=== PATIENT | female | born 1990 | race Caucasian/White ===

== ENCOUNTER 2017-01-22 04:05 | Inpatient (IN) | payer BC, OTHER ==
[~2017-01-22] VITALS: Ht 157.5 cm; Wt 88.9 kg
[2017-01-22] VITALS (51 sets, daily range): BP systolic 99–163; BP diastolic 50–137; PULSE 69–128; RESP 16–22; TEMP 97.8–98.9; O2SAT 99
[~2017-01-22 04:05] MED LIST: OXYC-360 PO; PREN0.01 PO
--- NOTE | 2017-01-22 05:02 | PD ---
HPI Travel History International Travel<30 Days: No Contact w/Intl Traveler<30Days: No Known Affected Area: No History of Present Illness HPI This patient is a 26-year-old 2 para 1001 EDC is January 22, 2017 presently at 40 weeks 2 days she presents the chief complaint of onset of contractions at 2:15 this morning no ruptured membranes no vaginal bleeding the baby is active care withHOGA course is unremarkable her group B strep is negative History Past Medical History Narrative Medical No known drug allergies no major medical problems Obstetric History Obstetric History First baby born April 2010 male weight 6 lbs. 10 oz. for nonreassuring heartbeat Desires a with this Past Surgical History Narrative Surgical 1 Family History Narrative Family History Heart disease hypertension gout Social History Alcohol Use: No Tobacco Use: No Substance Abuse: No (smoked years ago.) Allergies-Medications (Allergen,Severity, Reaction): Coded Allergies: No Known Allergies (Verified , 04/09/10) Home Meds Reported Medications Oxycodone/Acetaminophen (Percocet)5 Mg/325 Mg Tab1-2 Tab PO Q4-6HPRN #30 FOR PAIN 04/12/10 Multivit/Min/Fol Ac/Iron/Pren ( Vit ( Plus)) Tab1 Tab PO DAILY #30 04/08/10 Review of Systems Gastrointestinal: Abdominal Pain (irregular contractions) Physical Exam Narrative GENERAL: Well-nourished, well-developed patient. Alert oriented 3 and cooperative in moderate distress secondary to uterine contractions . CARDIOVASCULAR: Regular rate and rhythm without murmurs, gallops, or rubs. RESPIRATORY: Breath sounds equal bilaterally. No accessory muscle use ABDOMEN/GI: Gravid term estimated weight of 6-1/2-7 pounds Gravid to [-] weeks size term Fundal Height: [-] GENITOURINARY: External Genitalia: intact and normal in appearance BUS glands: [-] Cervix: [-] Posterior soft Dilatation: [-] 1 cm Effacement: [-] 80% effaced Station: [-] -2 station Presentation: [-] Vertex Membranes: [intact Uterine Contractions: [-] Irregular FHT's: Category: [-] 1 Baseline: [-]140 Reactive: [-] + Variability: [-] Moderate Decels: [-]0 EXTREMITIES: No cyanosis or edema. 2+ reflexes NEUROLOGICAL: Awake and alert. Motor and sensory grossly within normal limits. Five out of 5 muscle strength in all muscle groups. Normal speech. Data Data Vital Signs Reviewed: Yes (initial blood pressure 148/101 repeat pending) [facility] Medical Record Reviewed: Yes Interpretation(s) 26-year-old at 40 weeks Early latent phase Previous 1 Desires Group B strep negative Initial blood pressure mildly elevated Narrative Course / MDM Patient has been monitored No cervical change still 80% effaced 17 m dilated -2 station Category [address] Rebolledo in route to the hospital to evaluate Plan External monitoring Observation Repeat blood pressure Reevaluation Diagnosis Diagnosis: Primary Impression: Irregular contractions Additional Impression: Previous section Giselle Lombardi MD Jan 22, 2017 05:02
[2017-01-22] MEDS ORDERED: CITRIC ACID-SODIUM CITRATE LIQ 30 ML UDC PO SCH (08:00)
[2017-01-22] MEDS ORDERED: ONDANSETRON HCL 4 MG/2 ML VIAL IV PRN (08:00)
[2017-01-22] MEDS ORDERED: LIDOCAINE HCL 1% 50 ML VIAL I-DERMAL PRN (08:00)
[2017-01-22] MEDS ORDERED: SODIUM CHLORID 0.9% 500 ML INJ 500 ML IV PRN (08:00)
[2017-01-22] MEDS ORDERED: LIDOCAINE HCL 1% 50 ML VIAL INFIL PRN (08:00)
[2017-01-22] MEDS ORDERED: MINERAL OIL 10 ML VIAL TOPICAL PRN (08:00)
[2017-01-22] MEDS ORDERED: OXYTOCIN 30 UNITS-500ML PREMIX 500 ML IV ONE (08:00)
[2017-01-22] MEDS ORDERED: LACTATED RINGER'S 1000 ML INJ 1,000 ML IV PRN (08:00)
--- NOTE | 2017-01-22 08:03 | PD.LABORPN ---
Subjective Subjective feeling painful contractions q4 min consistently now, pain 6-7/10, denies SROM or VB, +FM Objective Vital Signs Vital Signs Date Time Temp Pulse Resp B/P Pulse Ox O2 Delivery O2 Flow Rate FiO2 01/22/17 07:31 86 128/85 01/22/17 07:15 90 146/86 Objective Pelvic Exam: Cervix: [mid] Dilatation: [2] Effacement: [80] Station: [-3] Presentation: [vtx] Membranes: [intact] Uterine Contractions: [q3-5 min] FHT's: Category: [I] Baseline: [130s] Reactive: [y] Variability: [y] Decels: [n] Assessment/Plan Problem List: (1) Labor and delivery indication for care or intervention (2) Post term over 40 weeks (3) History of delivery, currently Assessment and Plan 26 yo with IUP at 40w2d presents to L&D ED for c/o painful contractions , labor pains 1) contractions/labor: pt ruthie regularly q3-5 min, slight cervical change from 1-2 cm and very effaced; d/w pt expectant management due to h/o CD, pt agrees, aware of risk of , consents to admission & risks 2) TOLAC: r/b/a d/w pt including risks of uterine rupture & compromise, AQA, pt desires TOLAC 3) GBS neg 4) status: vtx, Cat I tracing May eRbolledo MD Jan 22, 2017 08:03
[2017-01-22] MEDS ORDERED: SODIUM CHLOR 0.9% 1000 ML INJ 1,000 ML IV PRN (08:16)
[2017-01-22] MEDS: LACTATED RINGER'S 1000 ML INJ 1,000 ML IV SCH ×2 (08:34→09:33)
[2017-01-22 08:45] LABS: AUTOMATED NEUTROPHIL # 11.7 TH/MM3 (1.8-7.7); BASOPHIL % 0.3 % (0.0-2.0); EOSINOPHIL # 0.1 TH/MM3 (0-0.4); HEMO FLAGS DIFF FINAL; LYMPH % 10.2 % (9.0-44.0); LYMPHOCYTE # 1.4 TH/MM3 (1.0-4.8); MEAN CELL VOLUME 86.1 FL (80.0-100.0); MEAN CORPUSCULAR HEMOGLOBIN 27.2 PG (27.0-34.0); MEAN CORPUSCULAR HGB CONC 31.6 % (32.0-36.0); MONO % 5.3 % (0.0-8.0); NEUT % 83.2 % (16.0-70.0); PLATELET COUNT 283 TH/MM3 (150-450); RED BLOOD COUNT 4.06 MIL/MM3 (4.00-5.30); RED CELL DISTRIBUTION WIDTH 16.2 % (11.6-17.2); WHITE BLOOD COUNT 14.1 TH/MM3 (4.0-11.0)
--- NOTE | 2017-01-22 09:57 | PD.LABORPN ---
Subjective Subjective feeling better now s/p epidural Objective Vital Signs Vital Signs Date Time Temp Pulse Resp B/P Pulse Ox O2 Delivery O2 Flow Rate FiO2 01/22/17 08:39 16 01/22/17 08:39 97.8 01/22/17 08:36 85 139/86 01/22/17 07:46 83 158/92 01/22/17 07:31 86 128/85 01/22/17 07:15 90 146/86 Objective Pelvic Exam: Cervix: [mid] Dilatation: [3-4] Effacement: [80] Station: [-2] Presentation: [vtx] Membranes: [AROM'd this check clear fluid, IUPC placed] Uterine Contractions: [q 7 min] FHT's: Category: [I] Baseline: [130s] Reactive: [y] Variability: [y] Decels: [earlys with contractions] Assessment/Plan Problem List: (1) Labor and delivery indication for care or intervention (2) Post term over 40 weeks (3) History of delivery, currently Assessment and Plan changing well on own IUPC placed to better monitor contraction strength in setting of TOLAC expectant management for now, pitocin if indicated, low dose only May Rebolledo MD Jan 22, 2017 09:57
[2017-01-22] MEDS ORDERED: OXYTOCIN 30 UNITS-500ML PREMIX 500 ML IV SCH (10:00)
[2017-01-22] MEDS ORDERED: ePHEDrine/NS 25 MG/5 ML SYR ONE (12:12)
[2017-01-22] MEDS ORDERED: fentaNYL 2MCG-BUPIV 0.125% INJ 100 ML ONE (12:12)
[2017-01-22] MEDS ORDERED: ePHEDrine/NS 25 MG/5 ML SYR IV PRN (13:45)
[2017-01-22] MEDS ORDERED: fentaNYL 2MCG-BUPIV 0.125% 100 ML EPIDURAL SCH (13:45)
[2017-01-22] MEDS ORDERED: DO NOT ADMINISTER ANTICOAGULANTS XX PRN (13:45)
[2017-01-22] MEDS ORDERED: NO SYSTEM NARCOTICS XX PRN (13:45)
--- NOTE | 2017-01-22 15:51 | PD.OB.DELI ---
Delivery Date: Jan 22, 2017 Anesthesia: Epidural Episiotomy: None Vaginal Delivery: Spontaneous, Presentation: Occiput anterior Nuchal Cord: None Delayed cord clamping (45 sec): Yes : Male One Minute : 7 Five Minute : 9 Weight: 8#14oz Care: Spontaneous crying, Responded to stimulation Placenta: Spontaneous delivery, Intact, 3 vessel cord Laceration: Perineal laceration, 2 deg Repair: Chromic running Additional Information EBL 200 mL successful May Rebolledo MD Jan 22, 2017 15:51
[2017-01-22] MEDS ORDERED: ALUMINUM/MAGNESIUM/SIMETH 30 ML CUP PO PRN (16:00)
[2017-01-22] MEDS ORDERED: SODIUM CHLORIDE 0.9% FLUSH 5 ML FLUSH IV PRN (16:00)
[2017-01-22] MEDS ORDERED: ZOLPIDEM TARTRATE 5 MG TAB PO PRN (17:00)
[2017-01-22] MEDS ORDERED: BENZOCAINE 20% TOPICAL SPRAY 60 ML CAN TOPICAL PRN (17:00)
[2017-01-22] MEDS ORDERED: ONDANSETRON ODT 4 MG TAB PO PRN (17:00)
[2017-01-22] MEDS ORDERED: ACETAMINOPHEN 325 MG TAB PO PRN (17:00)
[2017-01-22] MEDS ORDERED: MEASLES, MUMPS, RUBELLA VACCINE 0.5 ML VIAL SQ ONE (17:00)
[2017-01-22] MEDS ORDERED: WITCH HAZEL 50%/GLYCERIN 12.5% 40 PAD JAR TOPICAL PRN (17:00)
[2017-01-22] MEDS ORDERED: oxyCODONE/ACETAMINOPHEN 5 MG/325 MG TAB PO PRN (17:00)
[2017-01-22] MEDS ORDERED: DIPHTH/TETANUS/ACEL PERTUSSIS (BOOSTER) 0.5 ML VIAL/PFS IM ONE (17:00)
[2017-01-22] MEDS: IBUPROFEN 600 MG TAB PO PRN (18:23)
[2017-01-22] MEDS ORDERED: SODIUM CHLORIDE 0.9% FLUSH 5 ML FLUSH IV SCH (21:00)
[2017-01-23] MEDS: IBUPROFEN 600 MG TAB PO PRN ×4 (00:33→21:23)
--- NOTE | 2017-01-23 08:56 | HHI.DCPOC ---
Discharge Care Plan Diagnosis: (1) , delivered, current hospitalization Your Health Problems Are: Vaginal delivery Report Symptoms to Your Doctor -Temperate above 100.5 degrees -Redness, of incision or excessive or foul smelling drainage -Unusual pain or calf pain -Increased vaginal bleeding -Painful or difficulty urinating -Feelings of extreme sadness or anxiety after 2 weeks Goals to Promote Your Health * To prevent worsening of your condition and complications * To maintain your health at the optimal level Directions to Meet Your Goals Take your medications as prescribed Follow your dietary instruction Follow activity as directed Ensure plenty of rest for recovery Drink fluids for hydration Keep your appointments as scheduled Take your immunizations and boosters as scheduled If your symptoms worsen call your PCP, if no PCP go to Urgent Care Center or Emergency Room Smoking is Dangerous to Your Health. Avoid second hand smoke Call the 24-hour crisis hotline for domestic abuse at May Rebolledo MD Jan 23, 2017 08:56
[2017-01-23 09:30] VITALS: BP 135/80; PULSE 94; RESP 20; TEMP 97.8
[2017-01-23] MEDS: oxyCODONE/ACETAMINOPHEN 5 MG/325 MG TAB PO PRN ×3 (09:58→21:23)
--- NOTE | 2017-01-23 12:17 | HHI.OB ---
Subjective Post Day: 1 Remarks s/p successful after spontaneous labor doing well, no complaints, light lochia, pain minimal 1/10 cramps Objective Vitals/I&O Vital Signs Date Time Temp Pulse Resp B/P Pulse Ox O2 Delivery O2 Flow Rate FiO2 01/23/17 09:30 97.8 94 20 135/80 01/22/17 22:00 119/71 01/22/17 22:00 98.2 115 22 01/22/17 18:41 99 01/22/17 18:00 125 01/22/17 18:00 18 144/87 01/22/17 18:00 98.9 01/22/17 17:00 126 127/63 01/22/17 16:45 118 130/58 01/22/17 16:40 98.9 18 01/22/17 16:31 122 128/66 01/22/17 16:15 126 136/63 01/22/17 16:00 123 131/56 01/22/17 15:47 124 99/70 01/22/17 15:30 119/83 01/22/17 15:00 122 124/70 01/22/17 15:00 128 01/22/17 14:55 116 01/22/17 14:50 105 01/22/17 14:45 111 01/22/17 14:40 108 01/22/17 14:35 98 01/22/17 14:33 101 116/54 01/22/17 14:33 98.6 18 01/22/17 14:31 69 163/137 01/22/17 14:30 106 01/22/17 14:25 95 01/22/17 14:20 107 01/22/17 14:15 107 01/22/17 14:14 111 151/67 01/22/17 14:10 101 01/22/17 14:00 91 107/67 01/22/17 13:30 84 106/84 01/22/17 12:57 114 01/22/17 12:57 117/61 01/22/17 12:55 109 01/22/17 12:54 106 01/22/17 12:54 127/65 01/22/17 12:51 117/50 01/22/17 12:51 111 01/22/17 12:50 101 01/22/17 12:48 101 116/65 01/22/17 12:45 103 127/69 01/22/17 12:45 105 01/22/17 12:45 98.4 18 01/22/17 12:42 108 141/82 01/22/17 12:40 109 01/22/17 12:39 118 144/79 01/22/17 12:37 92 143/73 01/22/17 12:35 118 01/22/17 12:34 120 145/88 01/22/17 12:30 83 01/22/17 12:25 106 01/22/17 12:20 90 Objective Remarks GENERAL: Well-nourished, well-developed patient. CARDIOVASCULAR: Regular rate and rhythm without murmurs, gallops, or rubs. RESPIRATORY: Breath sounds equal bilaterally. No accessory muscle use. ABDOMEN/GI: Abdomen soft, non-tender. Fundus: Firm, non-tender at umbilicus. GENITOURINARY: Light to moderate bleeding. EXTREMITIES: No cyanosis or edema, non-tender, without signs of DVT. Medications and IVs Current Medications Medications (Trade) Dose Ordered Sig/Mili Route Start Time Stop Time Status Last Admin (NS Flush) 2 ml BID IV 01/22/17 21:00 (NS Flush) 2 ml UNSCH PRN IV 01/22/17 16:00 (Tylenol) 650 mg Q4H PRN PO 01/22/17 17:00 (Motrin) 600 mg Q6H PRN PO 01/22/17 17:00 01/23/17 06:14 (Percocet 5-325 Mg) 1 tab Q4H PRN PO 01/22/17 16:00 01/23/17 09:58 (Percocet 5-325 Mg) 2 tab Q4H PRN PO 01/22/17 17:00 (Americaine 20% Top Spr) 1 spray Q4H PRN TOPICAL 01/22/17 17:00 01/23/17 09:59 (Tucks Pads) 1 applic QID PRN TOPICAL 01/22/17 17:00 01/23/17 09:58 (Steph-Colace) 2 tab Q12H PRN PO 01/22/17 17:00 (Ambien) 5 mg HS PRN PO 01/22/17 17:00 (Mag-Al Plus Susp Liq) 15 ml Q8H PRN PO 01/22/17 16:00 (Zofran Odt) 4 mg Q6H PRN PO 01/22/17 17:00 Assessment/Plan Problem List: (1) , delivered, current hospitalization (2) Labor and delivery indication for care or intervention (3) Post term over 40 weeks (4) History of delivery, currently Assessment and Plan PPD#1 doing great routine PP care infant s/p circ this AM routine d/c planning for tmrw Discharge Planning routine May Rebolledo MD Jan 23, 2017 12:17
[2017-01-23] MEDS ORDERED: SENN1TAB PO (12:21)
[2017-01-23] MEDS ORDERED: IBUP-232 PO (12:21)
[2017-01-23] MEDS: DOCUSATE SODIUM 50 MG/SENNA 8.6 MG TAB PO PRN (15:06)
[2017-01-23 19:30] VITALS: BP 130/98; PULSE 75; RESP 18; TEMP 98
[2017-01-24] MEDS: oxyCODONE/ACETAMINOPHEN 5 MG/325 MG TAB PO PRN (05:24)
[2017-01-24] MEDS: IBUPROFEN 600 MG TAB PO PRN ×2 (05:24→11:47)
[2017-01-24] MEDS: DOCUSATE SODIUM 50 MG/SENNA 8.6 MG TAB PO PRN (05:28)
[2017-01-24 07:24] VITALS: BP 121/74; PULSE 86; RESP 17; TEMP 98.2
--- NOTE | 2017-01-24 10:02 | HHI.OB ---
Subjective Post Day: 2 Remarks s/p successful Objective Vitals/I&O Vital Signs Date Time Temp Pulse Resp B/P Pulse Ox O2 Delivery O2 Flow Rate FiO2 01/24/17 07:24 98.2 86 17 121/74 01/24/17 06:24 18 01/24/17 06:24 18 01/23/17 19:30 98.0 75 18 130/98 Objective Remarks GENERAL: Well-nourished, well-developed patient. CARDIOVASCULAR: Regular rate and rhythm without murmurs, gallops, or rubs. RESPIRATORY: Breath sounds equal bilaterally. No accessory muscle use. ABDOMEN/GI: Abdomen soft, non-tender. Fundus: Firm, non-tender at umbilicus. GENITOURINARY: Light bleeding. EXTREMITIES: No cyanosis or edema, non-tender, without signs of DVT. Medications and IVs Current Medications Medications (Trade) Dose Ordered Sig/Mili Route Start Time Stop Time Status Last Admin (NS Flush) 2 ml BID IV 01/22/17 21:00 (NS Flush) 2 ml UNSCH PRN IV 01/22/17 16:00 (Tylenol) 650 mg Q4H PRN PO 01/22/17 17:00 (Motrin) 600 mg Q6H PRN PO 01/22/17 17:00 01/24/17 05:24 (Percocet 5-325 Mg) 1 tab Q4H PRN PO 01/22/17 16:00 01/24/17 05:24 (Percocet 5-325 Mg) 2 tab Q4H PRN PO 01/22/17 17:00 (Americaine 20% Top Spr) 1 spray Q4H PRN TOPICAL 01/22/17 17:00 01/23/17 09:59 (Tucks Pads) 1 applic QID PRN TOPICAL 01/22/17 17:00 01/23/17 09:58 (Steph-Colace) 2 tab Q12H PRN PO 01/22/17 17:00 01/24/17 05:28 (Ambien) 5 mg HS PRN PO 01/22/17 17:00 (Mag-Al Plus Susp Liq) 15 ml Q8H PRN PO 01/22/17 16:00 (Zofran Odt) 4 mg Q6H PRN PO 01/22/17 17:00 Assessment/Plan Problem List: (1) , delivered, current hospitalization (2) Labor and delivery indication for care or intervention (3) Post term over 40 weeks (4) History of delivery, currently Assessment and Plan PPD#2 doing great routine PP care infant s/p circ yesterday AM routine d/c planning for today Discharge Planning routine May Rebolledo MD Jan 24, 2017 10:02
== END 2017-01-24 12:16 | disposition home or self-care (01) | DRG 775 ==
LOC: HOBED 04:05 → H2EB 08:07 → H1EA 17:50
PROVIDERS: ADMIT Obstetrics & Gynecology; ATTEND Obstetrics & Gynecology
PROC: 10E0XZZ Delivery of Products of Conception, External Approach (ICD-10-PCS; principal; 2017-01-22)
PROC: 0KQM0ZZ Repair Perineum Muscle, Open Approach (ICD-10-PCS; 2017-01-22)
PROC: 10907ZC Drainage of Amniotic Fluid, Therapeutic from Products of Conception, Via Natural or Artificial Opening (ICD-10-PCS; 2017-01-22)
PROC: 00HU33Z Insertion of Infusion Device into Spinal Canal, Percutaneous Approach (ICD-10-PCS; 2017-01-22)
PROC: 3E0R3CZ (ICD-10-PCS; 2017-01-22)
DX: O48.0 Post-term pregnancy (principal); O34.219 Maternal care for unspecified type scar from previous cesarean delivery; O70.1 Second degree perineal laceration during delivery; Z3A.40 40 weeks gestation of pregnancy; Z37.0 Single live birth; Z87.891 Personal history of nicotine dependence
CPT/HCPCS: 85025; 86850; 86900; 86901; 87641; 90715; 99285; J3010; J7120